=== PATIENT | female | born 1940 | race Caucasian/White ===

== ENCOUNTER → 2018-08-20 13:14 | Outpatient (CLI) | payer MEDICARE, SELFPAY ==
--- NOTE | 2018-08-20 | DI.MRI.S_ITS ---
PROCEDURE: MR LUMBAR SPINE WO CON INDICATIONS: LUMBAR SPINE PAIN TECHNIQUE: Noncontrast sagittal T1 spin echo and T2 fast echo, sagittal STIR, axial T1 and T2 fast spin echo through the lumbar spine. In cases with scoliosis, additional coronal T2 fast spin echo may be performed. COMPARISON: None. FINDINGS: Image quality: Excellent. Alignment and Curvature: No plain films are available for comparison, for numbering purposes. Thus, for the purposes of this examination, 5 lumbar type vertebral bodies will be presumed, as denoted on the montage panel. This should be confirmed and correlated with plain films, prior to any lumbar spinal intervention. There is loss of normal lumbar lordosis. There is mild, grade 1 retrolisthesis of L2 on L3, L3 on L4, L4 and L5, and L5 on S1. Bone Marrow: Marrow is of normal overall signal. No acute vertebral body compression fractures. There is moderate reactive signal within the endplates adjacent to the L1-L2, L2-L3, and L3-L4 intervertebral discs. Mild reactive signal within the endplates adjacent to the L4-L5 and L5-S1 intervertebral discs. Spinal Cord: Conus medullaris terminates at the mid L1 level. Visualized cord demonstrates normal signal and size. Paraspinous Soft Tissues: No paravertebral masses. L1-L2: Severe disc height loss and desiccation. Mild diffuse disc bulge with superimposed broad-based left posterolateral and far lateral protrusion. Moderate epidural lipomatosis. Mild facet and ligamentum flavum hypertrophy. There is moderate to severe canal stenosis. There is mild left and no right foraminal stenosis. L2-L3: Moderate disc height loss and desiccation. Moderate diffuse disc bulge. Mild facet and ligamentum flavum hypertrophy bilaterally. Moderate epidural lipomatosis. Severe canal stenosis. Mild left and moderate right foraminal stenosis. L3-L4: Severe disc height loss and desiccation. Moderate diffuse disc bulge/osteophyte with superimposed right far lateral protrusion/osteophyte. Bilateral facet and ligamentum flavum hypertrophy. Moderate epidural lipomatosis. Moderate canal stenosis. Moderate right and mild left foraminal stenosis. L4-L5: Moderate disc height loss and desiccation. Moderate diffuse disc bulge with superimposed broad-based right far lateral protrusion. Moderate bilateral facet and ligamentum flavum hypertrophy. Mild epidural lipomatosis. Mild canal stenosis. Moderate bilateral foraminal stenosis. L5-S1: Moderate disc height loss and desiccation. Mild diffuse disc bulge with superimposed broad-based left lateral protrusion/osteophyte. Mild bilateral facet hypertrophy. Mild canal stenosis. Mild right and severe left foraminal stenosis. Flattening deformity of the left L5 nerve root within the neural foramen. IMPRESSION: 1.5 lumbar type vertebral bodies were presumed for the current report. Plain films of the lumbar spine are recommended for confirmation, prior to any lumbar spinal intervention. 2. Multilevel degenerative disc and facet disease, as well ligamentum flavum hypertrophy and epidural lipomatosis. 3. Multilevel canal stenoses, worst at L2-L3, where there is severe canal stenosis. There is moderate to severe L1-L2 canal stenosis, and moderate L3-L4 canal stenosis. 4. Multilevel foraminal stenoses, worse at L5-S1 on the left, where there is flattening deformity of the left L5 nerve root within the neural foramen. Recommend correlation with clinical symptoms to ascertain relevance of this finding. Dictated by: Mariam Rai M.D. on 08/20/2018 at 16:02 Approved by: Mariam Rai M.D. on 08/20/2018 at 16:07
== END ==
PROVIDERS: Visit Provider Orthopaedic Surgery Orthopaedic Surgery of the Spine
DX: M54.5 Low back pain (principal); M51.36 Other intervertebral disc degeneration, lumbar region; M51.37 Other intervertebral disc degeneration, lumbosacral region; E88.2 Lipomatosis, not elsewhere classified; M48.061 Spinal stenosis, lumbar region without neurogenic claudication; M48.07 Spinal stenosis, lumbosacral region
CPT/HCPCS: 72148

== ENCOUNTER 2018-12-06 06:04 | Inpatient (IN) | payer MEDICARE, SELFPAY ==
[2018-11-18 12:52] VITALS: BMI 25.7
[2018-12-06] VITALS (26 sets, daily range): BP systolic 79–153; BP diastolic 32–78; PULSE 50–67; RESP 10–20; TEMP 35.7–37; O2SAT 91–99; BMI 26.8
[2018-12-06] MEDS: LACTATED RINGERS 1,000 ML 42 ML IV ×3 (07:06→12:26)
--- NOTE | 2018-12-06 07:40 | PM.PREOP ---
Pre-operative Note Interval Note History & Physical reviewed/Exam performed by Physician: Yes Changes to H&P: No
[2018-12-06] MEDS: CEFAZOLIN 2 GM/100 ML FROZ.PIGGY IV ×3 (07:50→23:40)
--- NOTE | 2018-12-06 08:41 | SUR.OPER ---
Prone on spine table, head in foam head support, padded chest and pelvic supports, gel pad at knees, lower legs supported by pillows; nipples, genitalia and toes free of pressure, arms secured on foam padded arm boards at <90 degrees abduction. Tape over blanket at thigh secured to table.
[2018-12-06] MEDS: BUPIVACAINE 0.25% W/ EPI VIAL 30 ML INJ (08:49)
[2018-12-06] MEDS: BUPIVACAINE LIPOSOME 266 MG/20 ML VIAL INJ (08:50)
[2018-12-06] MEDS: ACETAMINOPHEN IV 1,000 MG/100 ML VIAL 400 MG IV (11:45)
--- NOTE | 2018-12-06 12:12 | P.OP_ITS ---
Operative Date/Time/Diagnoses Date of procedure: 12/06/18 Time of procedure: 08:10 Pre-op diagnosis: 1. Lumbar scoliosis 2. L2-3, L3-4 spinal stenosis 3. L2-3, L3-4 spondylolisthesis 4. L2-3, L3-4 spondylosis with radiculopathy Post-op diagnosis: same Procedure & Clinicians Procedure: 1. L2-3, L3-4 Postero-lateral and posterior interbody fusion 2. L2-3, L3-4 interbody cage placement. 3. L2-3, L3-4 decompressive laminectomy with bilateral facetecomies 4. L2-3, L3-4 Posterior segmental instrumentation 5. [place] of bone marrow from iliac crest 6. Utilization of microsurgical technique and operating microscope Same procedure as scheduled: Yes Indications: Patient has been having chronic back pain and worsening lumbar radiculopathy. Patient failed multiple conservative management with worsening pain weakness and numbness in her lower extremity. Patient has been having difficulty performing activity of daily living. After discussing risks benefits of treatment options, patient elected proceed with surgery. Surgeon: Janice Nassar Automotive Electrician Helper: Brooke Barney Click Yes if Unassisted: No Anesthesia Type: General Operative Notes Closure Type: primary Specimen(s): none sent Prosthetic devices, grafts, tissues, transplants, or devices: Globus revolve screws, Rise cages Estimated Blood Loss (mL): 100 Blood products transfused: none Procedure in detail: Patient was seen in the preoperative area. Risks and benefits of the surgery was discussed with the patient. Informed consent was obtained from the patient and placed in the chart. Surgical site was marked. Patient was taken to the operative room. General anesthesia was administered. Prophylactic antibiotic was given to the patient less than 30 min before the incision was made. Patient was placed into a prone position on the Theo table. Patient's back was then prepped and draped in the sterile fashion. Time- out was performed at this time. Using AP and lateral C-arm imaging the interval between L2-3, L3-4 was identified and marked on patient's back. A 2 inch incision 2 in from midline was made on the right side first. The fascia was incised in line with skin incision. Globus MARS retractors was placed inside the incision and docked onto the L2 and L3 lamina. Using microsurgical technique and operating microscope, a L2 and L3 laminectomy and L2-3, L3-4 facetectomy was performed using a Kerrison rongeur. During the process of decompression more than 75% of bilateral L2-3, L3-4 facets were removed in order to decompress the spinal canal and the lateral recess. The L2-3, L3-4 level was grossly unstable after the decompression was completed and requiring the fusion procedure. The disc space at L2-3, L3-4 was identified. And a total diskectomy was performed at L2-3, L3-4 level. The endplates were decorticated using a rasp and shaver. The total diskectomy and decortication was performed at L2-3, L3-4 level in order to to accomplish a L2- 3, L3-4 fusion. The local bone from the laminectomy and facetectomy was saved for local bone grafting. After the total diskectomy and decortication was completed, Bio4 bone graft material was combined with local bone that was harvested earlier. At this time, a separate skin is incision was made over the iliac crest. A Jamshidi needle was inserted into the iliac crest through a separate skin incision. 5 cc of bone marrow aspiration was obtained through the separate skin incision using a Jamshidi needle from the iliac crest. The bone marrow aspiration was combined with local bone and the Bio4 bone grafting material. The bone grafting material was placed into the L2-3, L3-4 interbody space along with two cages, one expandable cage at each level. The cages were expanded to their maximum height using the torque limiting screwdriver. At this time a mirror image incision was made on the left side. The fascia was incised in line with the skin incision. Globus MARS retractor was inserted and docked onto the L2-3, L3-4 posterolateral gutter. Using the power drill, posterior-lateral decortication was performed at L2-3, L3-4 level until bleeding cortical bone was identified. The remaining bone grafting material was placed into the L2-3, L3-4 posterior lateral gutter he order to accomplish posterolateral fusion at the L2-3, L3-4 levels. Using the double C-arm technique, pedicle screws were placed into the L2, L3, L4 pedicles bilaterally. This was done by placing the Jamshidi needle into the pedicles, then placing the guidewires over the Jamshidi needle, and finally placing the cannulated screws over the guidewires bilaterally. After the pedicle screws were placed, 2 titanium rods was locked into the heads of the pedicle screws using locking caps and torque limiting screwdriver. Total 6 pedicles screws were placed. After all the hardware was placed, and confirmed with AP and lateral C-arm imaging, the wound was then irrigated with sterile normal saline and packed with [place] gauze for 3 min to accomplish hemostasis. After the gauze was removed the deep fascia was closed with #1 Vicryl suture. The subcutaneous layer was closed with 2-0 Vicryl. The skin was closed with skin shayna. Patient tolerated the procedure well. There were no complications. Complications: none Condition: stable Disposition: PACU Plan for aftercare: Admit to inpatient hospital
--- NOTE | 2018-12-06 12:17 | DI.RAD.S_ITS ---
PROCEDURE: XR LUMBAR SPINE 2-3V INDICATIONS: L2-3, L3-4 TLIF TECHNIQUE: 2 views of the lumbar spine were acquired. COMPARISON: [facility], CR, XR LUMBAR SPINE FLEXION EXTENSION, 08/12/2018, 16:06. FINDINGS: Bones: 5 [id number] vertebrae are present. There is normal bony alignment after posterior fusion with transverse pedicle screws and vertical fixation rods from L2-L4 with also interbody cage disc prostheses devices at the 2 intervening disc levels. No vertebral body compression fractures. No suspicious bony lesions. Soft tissues: Overlying bowel gas pattern is normal. No suspicious soft tissue calcifications. IMPRESSION: Normal alignment established after operative fusion as discussed, L2-L4. Normal device positioning. Dictated by: Bertin Dias M.D. on 12/06/2018 at 12:46 Approved by: Bertin Dias M.D. on 12/06/2018 at 12:47
--- NOTE | 2018-12-06 12:52 | SUR.PHASEI ---
Dr Herrera at [facility]. Fluids slowed a bit with BP > 100 systolic. Oral airway remains in place with some raspy sounds occasionally heard when eyes open. Eyes open spontaneously now, but only briefly.
--- NOTE | 2018-12-06 12:55 | SUR.PHASEI ---
Pupils 3mm B/l
--- NOTE | 2018-12-06 13:24 | SUR.PHASEI ---
Finally awake altho mentation and movements remain a bit slowed.
--- NOTE | 2018-12-06 13:50 | SUR.PHASEI ---
Prolonged PACU stay due to somnolence, O2 sats and BP needs. Awake now, stable and sufficient BP readings, O2 with only 2L NC. Denies pain. Glasses with patient for transfer.
[2018-12-06] MEDS: hydrOXYzine pamoate 25 MG CAPSULE PO (15:11)
[2018-12-06] MEDS: ACETAMINOPHEN 325 MG TABLET 650 MG PO ×2 (15:12→23:03)
[2018-12-06] MEDS: HYDROMORPHONE 1 MG INJ 0.5 MG IV (15:12)
[2018-12-06] MEDS: SODIUM CHLORIDE 0.9% 1,000 ML 100 ML IV (15:13)
--- NOTE | 2018-12-06 18:04 | PT.IIE ---
Current Diagnoses Spondylolisthesis, lumbar region (12/06/18) Other spondylosis with radiculopathy, lumbar region (12/06/18) Spinal stenosis, lumbar region without neurogenic claudication (12/06/18) Surgery Performed Operation Date: 12/06/18 07:45 Actual Procedures p L2-3, L3-4 TLIF w/Posterior Sven - Janice Nassar MD Surgical History (Last Updated 11/18/18 @ 13:15 by Joanna Chambers RN) Hx of arthroscopy of left knee (Acute ~2002) Hx of tonsillectomy (Acute) Status post cataract extraction of both eyes with insertion of intraocular lens (Acute) Medical History (Last Updated 11/18/18 @ 13:18 by Joanna Chambers RN) Back pain (Acute) DDD (degenerative disc disease) (Acute) Easy bruisability (Acute) Ganglion cyst of dorsum of left wrist (Acute) Gout (Acute) Hyperlipidemia (Acute) Lumbar stenosis (Acute) Migraines (Acute) Neck pain (Acute) Numbness and tingling (Acute) Osteoarthritis (Acute) Osteoporosis (Acute) Recurrent HSV (herpes simplex virus) (Acute) Sciatica (Acute) Scoliosis (Acute) Skin cancer (Acute) Torn meniscus (Acute) Physical Therapy Inpatient Evaluation/Re-Eval M1 PT/OT-IP Prior Functional Status Start: 12/06/18 17:17 Freq: NEEDED Status: Active Protocol: Document 12/06/18 15:45 HH (Rec: 12/06/18 18:03 [id number]) Medical Review Prior Functional Status Medical History Reviewed Yes Diet/Fluid Consistency Regular Communication No deficits noted Mobility and Gait Pt was an independent ambulator at home and community without using AD. Pt also drives very often. Pt was able to do gardening from time to time until her new onset of LBP and R lep pain since few months ago. Activities of Daily Living and IADL's Pt was very independent with ADLs and IADLs without using AD Social History Household Members spouse Living Arrangements House Number of Floors (Floors) One Floor Number of Stairs To Enter/Railing? No CHAKA Home Environment Walk in Shower Tub/Shower Home Equipment Front Wheel Walker Straight Cane Raised Toilet Seat w/Armrests Grab Bars Near Toilet Grab Bars In Shower Employment Status Retired Additional Social History Comment Pt lives with her in a 1 level home without CHAKA. 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 She was very active before and likes to do gardening from time to time. Pt c/o new onset of LBP and R leg pain since couple months ago which significantly limited her mobility. Pt's had knee surgery last year and has little difficulty doing sit to stand activities but he does not use AD and independent for ADLs and IADLs M2 PT-IP Current Condition Start: 12/06/18 17:17 Freq: NEEDED Status: Active Protocol: Document 12/06/18 15:45 HH (Rec: 12/06/18 18:03 [id number]) Physical Therapy Current Condition Current Condition Evaluation Date 12/06/18 Treatment Diagnosis L2-L4 TLIF, impaired balance and gait Onset Date 12/06/18 Precautions Lumbar Precautions Log Roll No Twisting Limit Bending Lifting Restriction of 10 lbs Gait Belt above Incisional Area Weight Bearing Status Weight Bearing Status Weight Bear as Tolerated M3 PT-IP Subjective Start: 12/06/18 17:17 Freq: NEEDED Status: Active Protocol: Document 12/06/18 15:45 HH (Rec: 12/06/18 18:03 [id number]) Subjective Physical Therapy Visit Type Type Initial Evaluation Visit Start Time 15:45 Visit Stop Time 16:15 Total Visit Minutes 30 Notes Per RN, pt has been quite impulsive and wanted to get OOB due to discomfort. Nursing staff assisted her getting into bedside chair. Pt's at bedside. Number of AGRONOMY PROFESSOR Visits 0 Physical Therapy Visit Comments Patient Comments My L lower back is having spasm since sx. Im loopy and lightheaded as well. Patient Goals To return home with her . Therapy Pain Assessment Pain Present Pain Present Denied Pain M4 PT-IP Mobility and Gait Start: 12/06/18 17:17 Freq: NEEDED Status: Active Protocol: Document 12/06/18 15:45 HH (Rec: 12/06/18 18:03 [id number]) PT-Transfer Assessment Sit to and From Stand Sit to and from Stand Contact Guard Assistance 1 Person Assistance Use of Upper Extremities Equipment Transfer Assistive Device Gait Belt Front Wheeled Walker Transfers Transfer Destination Bed Chair Toilet Transfer Technique Stand Step Pivot Transfer Ability Level of Assist Contact Guard Assistance 1 Person Assistance Use of Upper Extremities Comments Mobility Comments Pt sat in chair upon assessment. c/o loopy and lightheadness. BP 130s/60 s HR 60s SpO2 98% pre and post tx session. Pt was able to stand up and amb to bathroom for toileting. She transferred with CGA FWW. However, pt demonstrates slight retropulsion and siginificant sway back posture from time to time which required CGA for support. Gait Assessment Gait Gait Assistance Required: Contact Guard Assist 1 Person Assist Distance (Feet) 15 Able to Maintain Weight Bearing Status Yes During Gait Assistive Devices Assistive Device Gait Belt Front Wheeled Walker Gait Deviations General Gait Pattern Ataxic Decreased Stride Length Decreased Feet Clearance Factors Limiting Gait Function Factors Limiting Gait Function Decreased Activity Tolerance Decreased Sensation Decreased Strength Limited Range of Motion Pain Poor Balance Poor Safety Awareness Comments Gait Comments Pt amb from chair to bathroom for toileting and returned back to chair with FWW CGA. Pt presented slight ataxic gait with significant sway back/ slight retropulsion. This is possibly due to effect from anasthesia. Pt c/o lightheadedness but BP maintained safe and WFL. PT-Balance Assessment Sitting Balance and Reactions Static Sitting Balance Ability Normal Dynamic Sitting Balance Ability Normal Standing Balance and Reactions Static Standing Balance Ability Good Dynamic Standing Balance Ability Fair M5 PT-IP Objective Assessments Start: 12/06/18 17:17 Freq: NEEDED Status: Active Protocol: Document 12/06/18 15:45 (Rec: 12/06/18 18:03 [id number]) Orientation Orientation/Cognition Level of Alertness Alert Orientation Name Age Birthday Month Date Year Day of Week Place Situation Language Function Ability No Deficits Noted Safety Awareness Decreased Safety Awareness Memory Description No Deficits Noted Gross Range of Motion Upper Extremity ROM Assessment Within Functional Limits Lower Extremity ROM Assessment Within Functional Limits Strength Upper Extremity Strength Assessment Within Functional Limits Lower Extremity Strength Assessment Within Functional Limits Coordination Assessment Gross Coordination Gross Coordination WNL Sensation Assessment Sensation Gross Sensation WNL Light Touch Intact Proprioception (Position) Intact Muscle Tone Muscle Tone WNL Yes M6 PT-IP Treatment Start: 12/06/18 17:17 Freq: NEEDED Status: Active Protocol: Document 12/06/18 15:45 HH (Rec: 12/06/18 18:03 [id number]) Physical Therapy Treatment Exercises Exercises Ankle Pumps Quad Sets Education Education Provided Precautions Weight Bearing Status Post-Op Packet Safety M7 PT-IP Assessment and Plan Start: 12/06/18 17:17 Freq: NEEDED Status: Active Protocol: Document 12/06/18 15:45 HH (Rec: 12/06/18 18:03 [id number]) PT Summary Assessment and Plan Potential Rehabilitation Potential Good Status of Condition at Evaluation Evolving Summary Impairments Pain ROM Strength Balance Bed Mobility Transfers Gait Activity Tolerance Assessment Summary Pt is a pleasant 78yo female POD #1 L2-L4 TLIF. Pt's at bedside upon assessment. Pt c/o Left back spasm and lightheadedness, along with loopy feeling. Pt 's VS maintained stable during entire session but pt appeared to be slightly impulsive possibly due to medication from sx. Pt presented slight ataxic gait, significant sway back posture and slight retropulsion during amb which required CGA for safety. Pt also attempted to amb without FWW x 2. Pt will require SNF care due to her new onset of impaired balance and gait at this point, but she most likely will progress back to baseline and d/c home with assist once she is medically stable. Cont closely monitor with pt's progress and decide further d/ c planning. Goals Bed Mobility Goal Standby Assistance Transfer Goal Standby Assistance Front Wheeled Walker Gait Goal Standby Assistance Front Wheel Walker Gait Distance 200 Days to Meet Goals 5 Frequency of Treatment Frequency Of Treatment Twice a Day Treatment Plan Physical Therapy Treatment Plan Bed Mobility Training Transfer Training Gait Training Therapeutic Exercise Balance Retraining Post Op Education Discharge Planning Hot or Cold Pack Other Recommendations and Next Treatment monitor pt's mental status and Focus VSS transfer and gait training as rajinder. Recommendations To Nursing Amount of Assist Needed 1 Person Assist Discharge Recommendations PT Discharge Recommendations Home with Assistance SNF Rehab Other Discharge Recommendations Pt will require SNF care due to her new onset of impaired balance and gait at this point , but she most likely will progress back to baseline and d/c home with assist once she is medically stable. Cont closely monitor with pt's progress and decide further d /c planning. Equipment Needed for Home Before shower bench Discharge
[2018-12-06] MEDS: PRAVASTATIN 20 MG TABLET 10 MG PO (20:41)
[2018-12-06] MEDS: SENNOSIDES 8.6 MG TABLET 17.2 MG PO (20:43)
[2018-12-06] MEDS: MELATONIN 3 MG TABLET 6 MG PO (20:43)
--- NOTE | 2018-12-07 00:28 | PC.NURSE ---
Addendum entered by Meryl Green R.N. 12/07/18 06:24: Patient requesting Aleve this morning and when told that was not an ordered med she was unhappy because Dr Nassar knows that is what I have been taking for years. Informed her that after back surgery non steroidals are suppose to be avoided at which time patient took pill out of her mouth (had taken it from purse without RN knowledge) and then agreed to take 1 tab of Tylenol adamantly refusing Oxycodone. Right leg is obviously weak with patient barely being able to lift it off the bed. Is able to ambulate to/from bathroom without any dragging of foot or obvious weakness. Original Note: Addendum entered by Meryl Green R.N. 12/07/18 05:37: 0215 Patient upset with being woke by noises and staff checking on her. IVF infused and machine alarming and patient claims it was alarming for past hour which was not correct. Sat up on edge of bed and trying to stand by herself when stopped by staff informing her she needs to wait for walker and staff assistance. States I'm going to call a cab and go home. Disconnected from IVF as per MD order and then assisted to walk to the bathroom and back to bed. Has been sleeping rest of night when hourly patient checks done. Original Note: Patient is alert and oriented. Breath sounds CTA with RA sat of 99%. HRR. Denies nausea but having some heartburn but does not want MD called for any meds so decided to try yogurt instead. BT present and is passing flatus. Turns self in bed and is up to bathroom with walker and 1 assist. Dressing to back with some shadow drainage but is intact. Complains of 4/10 right leg pain for which she was earlier medicated with Tylenol; declines offer of ice pack. States she has some tingling in right inner thigh but otherwise CMS is intact. Refusing to wear SCD's so reminded to ankle wave. Fall risk score is high and bed alarm is activated.
[2018-12-07 06:11] LABS: Hematocrit 27.9 % (36-46); Hemoglobin 9.4 g/dL (12.0-16.0)
[2018-12-07 06:15] VITALS: BP 120/62; PULSE 56; RESP 16; TEMP 36.6; O2SAT 97
[2018-12-07] MEDS: ACETAMINOPHEN 325 MG TABLET 650 MG PO ×2 (06:19→09:26)
[2018-12-07 08:00] VITALS: BP 115/58; PULSE 62; RESP 15; TEMP 36.7; O2SAT 98
[2018-12-07] MEDS: DOCUSATE 100 MG CAPSULE PO (08:00)
[2018-12-07] MEDS: SODIUM CHLORIDE 0.9% FLUSH 10 ML IV (08:05)
--- NOTE | 2018-12-07 08:26 | PM.DS.1 ---
History of Present Illness Date Patient Seen: 12/07/18 Time Patient Seen: 08:26 Chief complaint: [id number] Narrative: Hospital day 2, postop day 1 following L2-3, L3-4 laminectomy, TLIF, cage and posterior screw fixation by Dr. Nassar. Patient remained stable postoperatively. She does note some weakness to her right thigh with lifting leg. She is able to get up out of bed on her own with walker and ambulate. Patient does have help home. She is desiring to go home today. She does have help at home. She does not want to use narcotics. She has had some reflux and does use occasional Prilosec at home. Dr. Nassar does not want to use NSAIDs postop instrumented fusion. Discharge Providers Date of admission: 12/06/18 06:04 Discharge Date: 12/07/18 Primary care physician: Radha Mccormack MD Consults: 12/06/18 14:24 Consult to Occupational Therapy Evaluate & Treat Comment: Physician Instructions: Evaluate and treat Consult to Physical Therapy Evaluate & Treat Comment: Physician Instructions: Evaluate and Treat Discharge provider: Luis Dia PA-C Summary Discharge Diagnosis: Status post L2-3, L3-4 laminectomy, TLIF, cage, posterior screw fixation Hospital Course: Patient brought to hospital on 12/06/2018 for above noted surgery. She remained stable postoperatively. She did have a L3 palsy following surgery otherwise able to move her leg and ambulate. Discharged home on postop day 1. Status at Discharge Cognitive/behavioral status at discharge: Alert, oriented no acute distress. Functional status at discharge: uses cane/walker Overall status at discharge: patient is progressing back to baseline Time Spent with Patient Less than 30 minutes Exam Vital Signs (past 8 hours): - 12/07/18 06:15 12/07/18 08:00 Temperature 97.9 F 98.0 F Pulse Rate 56 L 62 Respiratory Rate 16 15 Blood Pressure 120/62 115/58 L Pulse Oximetry 97 98 Oxygen Delivery Method Room Air Oxygen Flow Rate 0 Narrative Exam Narrative: Back. Dressing to lumbar area is dry without drainage or inflammation. Legs. No calf pain or swelling. Pulses symmetrical. Good sensation to touch to the lower legs symmetrical. Good strength on ankle dorsiflexion plantar flexion symmetrical. Patient has difficulty with right leg raise. Objective Labs Result Diagrams: 12/07/18 06:01 Labs: Laboratory Results - last 24 hr 12/07/18 06:01 Hgb 9.4 L Hct 27.9 L Discharge Plan Discharge Plan Patient Disposition: Home Discharge comment: Discharged home today after seen by physical therapy. CovRsite dressing to lumbar incision. I recommended the patient try to obtain a bed rail to use at home. Discharge Med Rec/Prescriptions Prescriptions: New acetaminophen 325 mg Tablet 650 mg PO Q6HR PRN (Reason: Pain, Mild (1-3)) Qty: 30 RF: 0 tramadol 50 mg Tablet 50 mg PO QID PRN (Reason: Pain, Moderate (4-6)) Qty: 30 RF: 0 dexamethasone 4 mg Tablet 4 mg PO Q8HR Qty: 14 RF: 0 Continued propranolol [Inderal LA] 60 mg Capsule,Extended Release 24 Hr 30 mg PO BEDTIME RF: 0 aspirin 81 mg Tablet,Delayed Release (Dr/Ec) 81 mg PO DAILY RF: 0 pravastatin 10 mg Tablet 10 mg PO DAILY RF: 0 famciclovir 500 mg Tablet 500 mg PO DAILY RF: 0 diphenhydramine HCl [Benadryl] 25 mg Capsule 12.5 mg PO BEDTIME RF: 0 melatonin 5 mg Tablet 5 mg PO BEDTIME RF: 0 Discontinued ibuprofen 200 mg Tablet 1 - 2 tab PO BID PRN (Reason: pain) RF: 0 Follow up/Referrals: Radha Mccormack MD [Primary Care Provider] - Provider Discharge Instructions Diet: Diet as Tolerated Activity: Ambulate as tolerated. Use walker as needed. Avoid excessive bending or twisting of lumbar spine. No lifting or carrying more than 5-10 lb. Other treatments: Take dexamethasone until gone. Skin/Wound/Dressing Care Report to your healthcare provider any signs of infection, such as:: chills, fever, night sweats, increased pain, unusual drainage and unusual redness Dressing: Keep CovRsite dressing in place until postop visit. Visit Report/Discharge Packet Instructions: DI for Transforaminal Lumbar Interbody Fusion Discharge Data Primary Care Provider: Radha Mccormack Attending Provider: Janice Nassar Admit Date/Time: 12/06/18 06:04
--- NOTE | 2018-12-07 08:31 | P.DS_ITS ---
History of Present Illness Date Patient Seen: 12/07/18 Time Patient Seen: 08:26 Chief complaint: [id number] Narrative: Hospital day 2, postop day 1 following L2-3, L3-4 laminectomy, TLIF, cage and posterior screw fixation by Dr. Nassar. Patient remained stable po stoperatively. She does note some weakness to her right thigh with lifting leg. She is able to get up out of bed on her own with walker and ambulate. Patient does have help home. She is desiring to go home today. She does have help at home. She does not want to use narcotics. She has had some reflux and does use occasional Prilosec at home. Dr. Nassar does not want to use NSAIDs postop instrumented fusion. Discharge Providers Date of admission: 12/06/18 06:04 Discharge Date: 12/07/18 Primary care physician: Radha Mccormack MD Consults: 12/06/18 14:24 Consult to Occupational Therapy Evaluate & Treat Comment: Physician Instructions: Evaluate and treat Consult to Physical Therapy Evaluate & Treat Comment: Physician Instructions: Evaluate and Treat Discharge provider: uLis Dia PA-C Summary Discharge Diagnosis: Status post L2-3, L3-4 laminectomy, TLIF, cage, posterior screw fixation Hospital Course: Patient brought to hospital on 12/06/2018 for above noted surgery. She remained stable postoperatively. She did have a L3 palsy following surgery otherwise able to move her leg and ambulate. Discharged home on postop day 1. Status at Discharge Cognitive/behavioral status at discharge: Alert, oriented no acute distress. Functional status at discharge: uses cane/walker Overall status at discharge: patient is progressing back to baseline Time Spent with Patient Less than 30 minutes Exam Vital Signs (past 8 hours): - 12/07/18 06:15 12/07/18 08:00 Temperature 97.9 F 98.0 F Pulse Rate 56 L 62 Respiratory Rate 16 15 Blood Pressure 120/62 115/58 L Pulse Oximetry 97 98 Oxygen Delivery Method Room Air Oxygen Flow Rate 0 Narrative Exam Narrative: Back. Dressing to lumbar area is dry without drainage or inflammation. Legs. No calf pain or swelling. Pulses symmetrical. Good sensation to touch to the lower legs symmetrical. Good strength on ankle dorsiflexion plantar flexion symmetrical. Patient has difficulty with right leg raise. Objective Labs Result Diagrams: 12/07/18 06:01 Labs: Laboratory Results - last 24 hr 12/07/18 06:01 Hgb 9.4 L Hct 27.9 L Discharge Plan Discharge Plan Patient Disposition: Home Discharge comment: Discharged home today after seen by physical therapy. CovRsite dressing to lumbar incision. I recommended the patient try to obtain a bed rail to use at home. Discharge Med Rec/Prescriptions Prescriptions: New acetaminophen 325 mg Tablet 650 mg PO Q6HR PRN (Reason: Pain, Mild (1-3)) Qty: 30 RF: 0 tramadol 50 mg Tablet 50 mg PO QID PRN (Reason: Pain, Moderate (4-6)) Qty: 30 RF: 0 dexamethasone 4 mg Tablet 4 mg PO Q8HR Qty: 14 RF: 0 Continued propranolol [Inderal LA] 60 mg Capsule,Extended Release 24 Hr 30 mg PO BEDTIME RF: 0 aspirin 81 mg Tablet,Delayed Release (Dr/Ec) 81 mg PO DAILY RF: 0 pravastatin 10 mg Tablet 10 mg PO DAILY RF: 0 famciclovir 500 mg Tablet 500 mg PO DAILY RF: 0 diphenhydramine HCl [Benadryl] 25 mg Capsule 12.5 mg PO BEDTIME RF: 0 melatonin 5 mg Tablet 5 mg PO BEDTIME RF: 0 Discontinued ibuprofen 200 mg Tablet 1 - 2 tab PO BID PRN (Reason: pain) RF: 0 Follow up/Referrals: Radha Mccormack MD [Primary Care Provider] - Provider Discharge Instructions Diet: Diet as Tolerated Activity: Ambulate as tolerated. Use walker as needed. Avoid excessive bending or twisting of lumbar spine. No lifting or carrying more than 5-10 lb. Other treatments: Take dexamethasone until gone. Skin/Wound/Dressing Care Report to your healthcare provider any signs of infection, such as:: chills, fever, night sweats, increased pain, unusual drainage and unusual redness Dressing: Keep CovRsite dressing in place until postop visit. Visit Report/Discharge Packet Instructions: DI for Transforaminal Lumbar Interbody Fusion Discharge Data Primary Care Provider: Radha Mccormack Attending Provider: Janice Nassar Admit Date/Time: 12/06/18 06:04
[2018-12-07] MEDS: PANTOPRAZOLE 20 MG TABLET PO (09:18)
[2018-12-07] MEDS: DEXAMETHASONE 4 MG TABLET PO (09:18)
--- NOTE | 2018-12-07 11:00 | OT.IP.EVAL ---
Current Diagnoses Spondylolisthesis, lumbar region (12/06/18) Other spondylosis with radiculopathy, lumbar region (12/06/18) Spinal stenosis, lumbar region without neurogenic claudication (12/06/18) Surgery Performed Operation Date: 12/06/18 07:45 Actual Procedures p L2-3, L3-4 TLIF w/Posterior Sven Nassar MD Past Medical History (Last Updated 11/18/18 @ 13:18 by Joanna Chambers RN) Back pain (Acute) DDD (degenerative disc disease) (Acute) Easy bruisability (Acute) Ganglion cyst of dorsum of left wrist (Acute) Gout (Acute) Hyperlipidemia (Acute) Lumbar stenosis (Acute) Migraines (Acute) Neck pain (Acute) Numbness and tingling (Acute) Osteoarthritis (Acute) Osteoporosis (Acute) Recurrent HSV (herpes simplex virus) (Acute) Sciatica (Acute) Scoliosis (Acute) Skin cancer (Acute) Torn meniscus (Acute) Surgical History (Last Updated 11/18/18 @ 13:15 by Joanna Chambers RN) Hx of arthroscopy of left knee (Acute ~2002) Hx of tonsillectomy (Acute) Status post cataract extraction of both eyes with insertion of intraocular lens (Acute) Occupational Therapy Inpatient Evaluation/Re-Eval M1 PT/OT-IP Prior Functional Status Start: 12/07/18 12:29 Freq: NEEDED Status: Active Protocol: Document 12/07/18 11:00 PJDerrick (Rec: 12/07/18 12:47 PJ [id number]) Medical Review Prior Functional Status Medical History Reviewed Yes Diet/Fluid Consistency Regular Communication WNL Mobility and Gait Pt was an independent ambulator at home and community without using AD. Pt was able to do gardening from time to time until her new onset of LBP and R leg pain since few months ago. Activities of Daily Living and IADL's Pt was very independent with ADLs and IADLs without using AD. 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 Prior Functional Level (Other details) has had knee surgery but ambulates without a device and can provide assist with all IADLS PRN after d/c. Social History Household Members spouse Living Arrangements House Number of Floors (Floors) One Floor Number of Stairs To Enter/Railing? No stairs to enter Home Environment Walk in Shower Home Equipment Front Wheel Walker Raised Toilet Seat w/Armrests Shower Seat with Backrest Long Handled Sponge Shredder Picker Grab Bars Near Toilet Grab Bars In Shower Employment Status Retired M2 OT-IP Current Condition Start: 12/07/18 12:29 Freq: Status: Active Protocol: Document 12/07/18 11:00 PJM (Rec: 12/07/18 12:47 PJ [id number]) Occupational Therapy Current Condition Current Condition Evaluation Date 12/07/18 Treatment Diagnosis decreased self care, mobility s/p L2-4 fusion Diagnosis Onset Date 12/06/18 Post Operative Precautions Lumbar Precautions Log Roll No Twisting Limit Bending Lifting Restriction of 10 lbs Gait Belt above Incisional Area M3 OT- IP Subjective and Pain Start: 12/07/18 12:29 Freq: Status: Active Protocol: Document 12/07/18 11:00 PJM (Rec: 12/07/18 12:47 PJM [id number]) OT- Subjective Occupational Therapy Visit Type Type Initial Evaluation Visit Start Time 10:05 Visit Stop Time 11:00 Total Visit Minutes 55 Notes here at end of session for education Occupational Therapy Visit Comments Patient Comments I think I am ready to go home . Will this numbness and weakness in my leg get better? Patient/Caregiver Goals to be able to resume volunteer driving duties and work in her garden, to have less back pain during daily tasks OT Pain Assessment Pain When Pain Assessed After Treatment Pain Present Pain Present Pain Reported Location Right Leg Intensity 4 Scale Used Numeric (1 - 10) Description Aching Acute Pain Behaviors Guarding Management Techniques Distraction Re-positioning Timing of Activity with Medications M4 OT- IP ADL's Start: 12/07/18 12:29 Freq: Status: Active Protocol: Document 12/07/18 11:00 PJM (Rec: 12/07/18 12:47 PJM [id number]) OT [id number]-[id number] General Evaluation Self-Feeding Ability Independent OT ADL-Grooming General Evaluation Grooming Ability Independent Areas Needing Assistance Combing/Brushing Hair Face Washing Comments OT Grooming Comments standing at sink after education re: body mechanics OT ADL-Oral Care General Eval Oral Care Ability Independent Areas of Assistance Brushing Teeth Devices Oral Care Devices Toothbrush Comments Oral Care Comments standing at sink after education re: body mechanics OT ADL-Dressing General Eval Upper Body Dressing Ability Independent Lower Body Dressing Ability Standby Assistance Areas Needing Assistance Underpants/Brief Pants/Shorts Socks Shoes Assistive Devices Dressing Assistive Devices Shredder Picker Sock Aid Comments OT Dressing Comments Pt has senior service technician. Provided education re: doffing socks and donning/doffing pants with senior service technician. Provided education re: use of sock aid to don socks and provided one to pt at her request. Pt declines long shoe horn; states she wears only slip on shoes at home. OT ADL-Toileting General Evaluation Toileting Ability Independent Areas Needing Assistance Manage Clothing Perform Perineal Hygiene Comments OT Toileting Comments provided education re: body mechanics OT ADL-Bathing Bathing Type Bathing Type Shower General Evaluation Bathing Ability Standby Assistance Devices Bathing Equipment Long Handled Sponge or [place] Comments OT Bathing Comments pt has built in shower seat in walk in shower stall and has long bath sponge. can provide SBA PRN. M5 OT- IP IADL's Start: 12/07/18 12:29 Freq: Status: Active Protocol: Document 12/07/18 11:00 PJ (Rec: 12/07/18 12:47 [facility] [id number]) OT-Instrumental Activities of Daily Living Deficits IADL Deficits Identified Deficits Home Safety Awareness Awareness of Need for Assistance at Home Good Awareness Ability to Problem Solve Emergency Able to Problem Solve Situations Medication Management Medication Management No Deficits Identified Money Management Money Management No Deficits Identified Meal Preparation Meal Preparation Caregiver Provides Assist Meal Preparation Comments to assist until pt able Dynamics Ax Solution Architect Dynamics Ax Solution Architect Caregiver Provides Assist Dynamics Ax Solution Architect Comments to assist until pt able Driving Driving Caregiver Provides Assist Driving Comments to assist until pt able M6 OT- IP Functional Cognition Start: 12/07/18 12:29 Freq: Status: Active Protocol: Document 12/07/18 11:00 PJM (Rec: 12/07/18 12:47 [facility] [id number]) Cognitive Factors Limiting Selfcare Function Cognitive Ability Level of Alertness Alert Patient Orientation Name Age Birthday Month Date Year Day of Week Place Situation Attention Span Ability Capable of Focused Attention Capable of Sustained Attention Ability to Follow Commands Able to Follow One Step Commands Safety Awareness Decreased Ability to Apply Precautions Problem Solving Ability Needs Assist to Identify Solutions Cognitive Comments Cognitive Assessment Comments Pt able to verbalize 3/3 lumbar precautions but needs min cues to apply them during mobility and self care tasks. able to cue pt appropriately. Pt needs some repetition of information to ensure understanding e.g. use of new adaptive equipment. OT- Vision and Hearing OT- Hearing Assessment OT- Hearing Assessment WFL OT- Vision Assessment Visual Acuity WFL M7 OT- IP Mobility and Balance Start: 12/07/18 12:29 Freq: Status: Active Protocol: Document 12/07/18 11:00 PJM (Rec: 12/07/18 12:47 [facility] [id number]) OT- Bed Mobility Assessment Rolling Type of Rolling Roll to Right Level of Assistance Independent Supine to Sit Supine to Sit Assist Independent Sit to Supine Sit to Supine Assist Standby Assistance Scooting Scooting to Edge of Bed Independent OT-Transfer Assessment Sit to and From Stand Sit to and from Stand Independent Transfers Transfer Ability Independent Technique Transfer Destination Bed Chair Transfer Technique Stand Step Pivot Devices Transfer Assistive Devices Front Wheeled Walker Comments Mobility Comments Pt has weakness in R hip flexors and initially needing min assist to get RLE onto bed . Educated about using LLE to assist RLE onto bed, then pt SBA to independent with pratice. OT- Gait Assessment Gait Gait Assistance Required: Independent Distance (Feet) 10 Assistive Devices Assistive Device Front Wheeled Walker Comments Gait Ability Comments needs reminders to use FWW as per P.T. recommendation OT- Balance Assessment Sitting Balance and Reactions Static Sitting Balance Ability Good Dynamic Sitting Balance Ability Good Standing Balance and Reactions Static Standing Balance Ability Good Dynamic Standing Balance Ability Good Comments Other Balance Tests/Deviations/Treatment with FWW in standing : M8 OT- IP Objective Assessments Start: 12/07/18 12:29 Freq: Status: Active Protocol: Document 12/07/18 11:00 PJM (Rec: 12/07/18 12:47 [facility] [id number]) OT Gross Range of Motion Upper Extremity Range of Motion Assessment Within Functional Limits OT Strength Upper Extremity Strength Assessment Within Functional Limits Hand Fuel Truck Driver Strength Hand Dominance Right OT- Coordination Assessment Upper Extremity Finger Tapping Test Within Functional Limits Comments Coordination Comments BUE WFL OT-Muscle Tone Assessment Muscle Tone WNL Yes OT Sensation Assessment Comments Summary Comments Pt denies deficits in BUE's; pt reports numbness in R anterior thigh Edema Edema Absent M9 OT- IP Assessment and Plan Start: 12/07/18 12:29 Freq: Status: Active Protocol: Document 12/07/18 11:00 PJM (Rec: 12/07/18 12:47 PJ [id number]) OT Summary Assessment and Plan Potential Rehabilitation Potential Good Analytic Complexity at Evaluation Low Summary OT Impairments Pain Strength Progress Towards Goals Safe For Discharge Assessment Summary Low complexity OT assessment and all education provided today re: lumbar spine precautions, chair selection, posture, body mechanics, adapted ADLS including use of lower body dressing equipment, bathroom safety equipment options, shower stall and car transfers. here for education at end of session and can provide 24 hr assist after d/c PRN. Pt/husbnad verbalize and demonstrate understanding of all education . Pt plans to d/c home today. No further OT services needed. Frequency of Treatment Frequency Of Treatment Discharge Discharge Recommendations OT Discharge Recommendations Home with 24/7 Assist Home Equipment Needs sock aid provided; to obtain FWW for pt from local [facility]
--- NOTE | 2018-12-07 11:35 | CM.DANOTE ---
Addendum entered by Hermila Jacinto LPN 12/07/18 11:49: Went to room to check in with pt. Room empty. RN Lurdes states that pt did extremely well this morning. Worked with OT Rae and PT and was ok for home. Attempted to connect with LILIYA Alexander but she is not currently available. Reviewed initial PT eval by Dwight Garsia) of yesterday. He was recommending snf so surmise part of this info might have been pulled into eval today. Lurdes states she went home with her to [place] and no concerns were expressed re the d/c for today. Original Note: Addendum entered by Hermila Jacinto LPN 12/07/18 11:43: See that LILIYA Alexander did see pt this morning and her note was just entered. She is recommending home with assistance for snf....will check in with her and with pt now. Original Note: Discharge Planning/Care Management DCP: assessment: case received, EMR reviewed and d/c to home order noted early this morning by Ortho PA team. Pt is a 78 year old female who admitted yesterday for a planned spinal surgery: Surgeon: Dr. Nassar. PCP: listed as Zayra Mccormack Payer: Medicare and AARP Therapy has been ordered but no notes are available at this time. P: check in with pt for introduction of self and role follow up accordingly. CM Discharge Assessment Start: 12/07/18 11:34 Freq: Status: Active Protocol: Document 12/07/18 11:34 ITV (Rec: 12/07/18 11:35 ITV [id number]) Discharge Planning Assessment Advance Directives? Yes Advance Directives on File No History Provided By Patient Family Member Medical Record Prior Living Arrangements House Household Members spouse Whiteboard Updated in Patient Room with Yes name and ext. 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 Review Status In Process Next Review Type Continued Stay Review Pre-Anesthesia Assessment Start: 11/18/18 12:52 Freq: Status: Complete Protocol: Document 11/18/18 12:52 CAB (Rec: 11/18/18 13:35 CAB [id number]) Pre-Anesthesia Assessment Patient Information Reviewed Via Phone Assessment Assessment Completed With Patient Consent for Planned Operative Procedure( Yes s) Verified Diagnostic Results BMP/CMP CBC EKG Primary Care Provider Radha Mccormack Seen Specialist in Last 12 Months Yes Specialist Seen Orthopedist Primary Language Khmer Nurse Instructor Required No Height 165.1 cm Weight 70.307 kg Body Mass Index (BMI) 25.7 Hearing Ability Normal Visual Assist Glasses Dentition Type Teeth, Natural Present Teeth, Missing Barriers to Learning Auditory Other Aids No Hx Anesthesia Reactions No Hx Family Anesthesia Reaction No Hx Malignant Hyperthermia No Hx Blood Transfusions No Anesthesia Review Requested No Reprographics Technician No alcohol intake current alcohol intake frequency 0-2 drinks per day Smoking Status Former smoker Tobacco type cigarettes how long ago did patient quit smoking Quit age 23 Substance Use Type does not use Pain Present Pain Reported Musculoskeletal Symptoms Back Pain Difficulty Walking Joint Pain Muscle Cramps Numbness Radiating Pain into Limb Tingling History of Falling (Recent or History of Yes ) Patient is completely paralyzed or No completely immobile Mental Status Oriented to own ability Is patient on oxygen? No Does patient have DIANA/SOB No Hx Sleep Apnea No Currently Taking a Beta Kayleen Yes: Propranolol-increase heart rate w/migraines Can You Climb a Flight of Stairs Without Yes SOB Hx Chest Pain No Hx SOB No Hx Syncope or Dizziness No Anti-Coagulant Therapy No Has a Interceptor Operator No Cardiac Testing No Hx Pacemaker/ICD No Pacemaker Rep Required? No Cardiac Clearance Received Not Applicable Diet Type At Home Regular dysphagia No Urinary Catheter Present No Hx Urinary Self Catheterization No Diabetes No Patient No Lactating No Hx Drug Resistant Organism No Presence of External or Internal Medical No Devices Have you traveled outside the [place] Yes: Will travel to [place] 11/20- in the last 30 days? 3/3 Marital Status Lives With spouse Prior Living Arrangements House Number of Floors (Floors) One Floor Number of Stairs To Enter/Railing? None Support System Spouse Patient Discharge Plan Description Return Home Comment Pt advised 2-3 night length of stay per surgeon's office Feels Safe in Current Environment Yes Been Physically Hurt or Threatened By a No Person in Current Environment Do you have thoughts of harming yourself None or others? Are you currently considering suicide? No Do you have a plan to hurt yourself or No Plan others? Do You Have Any Spiritual Beliefs That No May Affect Your HC Choices? Do You Have Any Cultural Practices That No May Affect Your HC Choices? Spiritual Referral None Who Can We Speak to About Patient's Care Family, friends Identifying Code for Release of Patient Declines to issue Information Health Care Proxy/Next of Kin Yoav Temple () Health Care Proxy Emergency Contact Name Yoav Temple () Emergency Contact Advance Directives? Yes Advance Directives on File No Requested Patient Bring Advanced Yes Directives DOS Power of Ammunition Specialist Yes Power of Ammunition Specialist Name Yoav Temple () Power of Ammunition Specialist PAC Instructions Durable medical equipment Medications to take/avoid Nasal antibiotic No ETOH/petroleum product on skin DOS NPO Pre-surgical wash Sturdy shoes/comfortable clothes Do not bring valuables and remove jewelry
--- NOTE | 2018-12-07 11:35 | PT.IPTN ---
Current Diagnoses Spondylolisthesis, lumbar region (12/06/18) Other spondylosis with radiculopathy, lumbar region (12/06/18) Spinal stenosis, lumbar region without neurogenic claudication (12/06/18) Surgery Performed Operation Date: 12/06/18 07:45 Actual Procedures p L2-3, L3-4 TLIF w/Posterior Oscaru - Janice Nassar MD Physical Therapy Treatment Note M2 PT-IP Current Condition Start: 12/06/18 17:17 Freq: NEEDED Status: Active Protocol: Document 12/06/18 15:45 HH (Rec: 12/06/18 18:03 HH [id number]) Physical Therapy Current Condition Current Condition Evaluation Date 12/06/18 Treatment Diagnosis L2-L4 TLIF, impaired balance and gait Onset Date 12/06/18 Precautions Lumbar Precautions Log Roll No Twisting Limit Bending Lifting Restriction of 10 lbs Gait Belt above Incisional Area Weight Bearing Status Weight Bearing Status Weight Bear as Tolerated M3 PT-IP Subjective Start: 12/06/18 17:17 Freq: NEEDED Status: Active Protocol: Document 12/07/18 09:40 CLB (Rec: 12/07/18 11:35 CLB [id number]) Subjective Physical Therapy Visit Type Type Treatment Note Visit Start Time 09:40 Visit Stop Time 09:55 Total Visit Minutes 15 Number of TEACHER EDUCATION INSTRUCTOR Visits 1 Physical Therapy Visit Comments Patient Comments Pt stated she can't move RLE while in bed and c/o numbness in RLE. Patient Goals To return home with her . Therapy Pain Assessment Pain Present Pain Present Denied Pain M4 PT-IP Mobility and Gait Start: 12/06/18 17:17 Freq: NEEDED Status: Active Protocol: Document 12/07/18 09:40 CLB (Rec: 12/07/18 11:35 CLB [id number]) PT-Bed Mobility Assessment Rolling Type of Rolling Log Rolling Roll to Right Supine to Sit Supine to Sit Standby Assistance Scooting Scooting to Edge of Bed Standby Assistance PT-Transfer Assessment Sit to and From Stand Sit to and from Stand Contact Guard Assistance 1 Person Assistance Use of Upper Extremities Equipment Transfer Assistive Device Gait Belt Front Wheeled Walker Transfers Transfer Destination Bed Chair Transfer Ability Level of Assist Contact Guard Assistance 1 Person Assistance Use of Upper Extremities Comments Mobility Comments Pt eager to get OOB and required cues to slow down and properly perform log roll. Gait Assessment Gait Gait Assistance Required: Standby Assistance 1 Person Assist Distance (Feet) 100 Able to Maintain Weight Bearing Status Yes During Gait Assistive Devices Assistive Device None Gait Belt Front Wheeled Walker Gait Deviations General Gait Pattern Ataxic Decreased Stride Length Decreased Feet Clearance Factors Limiting Gait Function Factors Limiting Gait Function Decreased Activity Tolerance Decreased Sensation Decreased Strength Limited Range of Motion Pain Poor Balance Poor Safety Awareness Comments Gait Comments Pt ambulate quickly and requires cues to slow pace. Pt also needed cues for walker use as pt wanted to pick walker up during ambulation. Pt was steadier on her feet with no retropulsion present today. Pt requested to trial ambulation w/o AD which was performed with CGA. Pt had increased forward flx and it was recommended to pt she continues to use FWW for ambulation. Stair Climbing Assessment Comments Stair Climbing Comments Pt has no stairs in home and none to enter home through garage. M5 PT-IP Objective Assessments Start: 12/06/18 17:17 Freq: NEEDED Status: Active Protocol: Document 12/06/18 15:45 HH (Rec: 12/06/18 18:03 [id number]) Orientation Orientation/Cognition Level of Alertness Alert Orientation Name Age Birthday Month Date Year Day of Week Place Situation Language Function Ability No Deficits Noted Safety Awareness Decreased Safety Awareness Memory Description No Deficits Noted Gross Range of Motion Upper Extremity ROM Assessment Within Functional Limits Lower Extremity ROM Assessment Within Functional Limits Strength Upper Extremity Strength Assessment Within Functional Limits Lower Extremity Strength Assessment Within Functional Limits Coordination Assessment Gross Coordination Gross Coordination WNL Sensation Assessment Sensation Gross Sensation WNL Light Touch Intact Proprioception (Position) Intact Muscle Tone Muscle Tone WNL Yes M6 PT-IP Treatment Start: 12/06/18 17:17 Freq: NEEDED Status: Active Protocol: Document 12/06/18 15:45 HH (Rec: 12/06/18 18:03 [id number]) Physical Therapy Treatment Exercises Exercises Ankle Pumps Quad Sets Education Education Provided Precautions Weight Bearing Status Post-Op Packet Safety M7 PT-IP Assessment and Plan Start: 12/06/18 17:17 Freq: NEEDED Status: Active Protocol: Document 12/07/18 09:40 CLB (Rec: 12/07/18 11:35 CLB [id number]) PT Summary Assessment and Plan Potential Rehabilitation Potential Good Status of Condition at Evaluation Evolving Summary Impairments Pain ROM Strength Balance Bed Mobility Transfers Gait Activity Tolerance Assessment Summary Pt is impulsive and requires cues to slow pace. Pt requires the use of FFW at this time for safety. Pt refused ambulation in gaffney but completed ~100ft in room with cues for pacing for safety. Pt moves walker to side and tries to transfer w/o use of walker reaching for furniture. Recommended to pt that she continues to use FWW for safety and to prevent bending. Pt recalled 3/3 precautions but doesn't always demontrate them during ambulation and transfers. Goals Bed Mobility Goal Standby Assistance Transfer Goal Standby Assistance Front Wheeled Walker Gait Goal Standby Assistance Front Wheel Walker Gait Distance 200 Days to Meet Goals 5 Frequency of Treatment Frequency Of Treatment Twice a Day Treatment Plan Physical Therapy Treatment Plan Bed Mobility Training Transfer Training Gait Training Therapeutic Exercise Balance Retraining Post Op Education Discharge Planning Hot or Cold Pack Other Recommendations and Next Treatment monitor pt's mental status and Focus VSS transfer and gait training as rajinder. Recommendations To Nursing Amount of Assist Needed 1 Person Assist Discharge Recommendations PT Discharge Recommendations Home with Assistance SNF Rehab Other Discharge Recommendations Equipment Needed for Home Before shower bench Discharge
== END 2018-12-07 11:26 | disposition home or self-care (01) | DRG 455 ==
PROVIDERS: Admitting Provider Orthopaedic Surgery Orthopaedic Surgery of the Spine; PCP Internal Medicine; Visit Provider Orthopaedic Surgery Orthopaedic Surgery of the Spine
PROC: 0SG10AJ Fusion of 2 or more Lumbar Vertebral Joints with Interbody Fusion Device, Posterior Approach, Anterior Column, Open Approach (ICD-10-PCS; principal; 2018-12-06 07:45)
DX: M43.16 Spondylolisthesis, lumbar region (principal); M48.061 Spinal stenosis, lumbar region without neurogenic claudication; E78.5 Hyperlipidemia, unspecified; M41.26 Other idiopathic scoliosis, lumbar region
CPT/HCPCS: 36415; 72100; 76000; 85014; 85018; 94760; 97116; 97162; 97165; 97530; C1776; C9290; J0131; J0330; J0690; J1100; J1170; J2250; J2405; J2704; J3010

== ENCOUNTER → 2018-12-28 12:00 | Outpatient (CLI) | payer MEDICARE, SELFPAY ==
[2018-12-06 14:28] VITALS: BMI 26.8
--- NOTE | 2018-12-28 | DI.CT.S_ITS ---
PROCEDURE: CT LUMBAR SPINE WO CON INDICATIONS: INVERTEBRAL DISC DISORDER LUMBAR REGION TECHNIQUE: Noncontrast 3 mm thick sections acquired from the T12 level to the sacrum. Sagittal and coronal reformats were constructed. For radiation dose reduction, the following was used: automated exposure control. COMPARISON: [facility], MR, MR LUMBAR SPINE WO CON, 08/20/2018, 13:30. [facility], CR, XR LUMBAR SPINE 2-3V, 12/06/2018, 8:16. FINDINGS: Image quality: Excellent. Bones: No acute vertebral body compression fractures. No suspicious lytic or blastic bony lesions. Central spinal caliber is of normal overall caliber. No pars defects. Mild S. shaped scoliotic curvature is seen. Postoperative changes are seen, bilateral pedicle screws at the L2, L3, and L4 levels. The screws appear well placed. Vertical fixation rods are seen. Disc spacers are seen at L2-L3 and L3-L4. No findings of hardware failure or hardware loosening are seen. There is streak artifact seen associated with the postoperative hardware. There has been removal of portions of the posterior elements. Bone grafting material is noted. T12-L1: No significant abnormality is seen. L1-L2: Moderate to severe loss of disc height is seen. Minimal retrolisthesis is seen at this level. There is moderate right-sided and moderate to severe left-sided neural foraminal narrowing seen. Endplate irregularity and osteophyte formation can be seen, particularly on the left side. Mild central canal narrowing is seen. L2-L3: The disc height is relatively well-preserved. Mild retrolisthesis is seen at this level. Mild generalized disc bulge is seen. There is moderate left-sided neural foraminal narrowing and no significant right-sided neural foraminal narrowing. This level is improved compared to the preoperative MRI. L3-L4: The disc height is relatively well-preserved. Mild disc bulge is seen. No significant neural foraminal or central canal narrowing can be seen. This level is improved compared to the prior MRI. L4-L5: Moderate loss of disc height is seen on the right side. Vacuum disc phenomenon is seen at this level. Endplate irregularity and osteophyte formation can be seen. Moderate bilateral neural foraminal narrowing is seen, left worse than right. Mild central canal narrowing is seen. Stable from the prior study. L5-S1: Moderate to severe loss of disc height is seen on the left side. Vacuum disc phenomenon is seen at this level. Endplate irregularity and sclerosis can be seen, particularly on the left side. Posteriorly directed endplate osteophytes are seen. There is at least moderate left-sided and moderate right-sided neural foraminal narrowing seen. Mild central canal narrowing is seen. No significant change from the prior. Soft tissues: No retroperitoneal masses or hematomas. Visualized aorta is normal in caliber. IMPRESSION: Postoperative change L2-L4, with improved degrees of narrowing throughout the postoperative region. The degenerative changes elsewhere appear stable. Dictated by: Elpidio Quevedo M.D. on 12/28/2018 at 11:34 Approved by: Elpidio Quevedo M.D. on 12/28/2018 at 11:42
== END ==
PROVIDERS: PCP Internal Medicine; Visit Provider Orthopaedic Surgery Orthopaedic Surgery of the Spine
DX: M51.16 Intervertebral disc disorders with radiculopathy, lumbar region (principal); M48.061 Spinal stenosis, lumbar region without neurogenic claudication; M48.07 Spinal stenosis, lumbosacral region
CPT/HCPCS: 72131

== ENCOUNTER 2019-01-05 09:45 | Inpatient (IN) | payer MEDICARE, SELFPAY ==
[2018-12-06 14:28] VITALS: BMI 26.8
[2018-12-31 10:20] VITALS: BMI 25.7
[2019-01-05] VITALS (12 sets, daily range): BP systolic 129–154; BP diastolic 60–98; PULSE 56–77; RESP 14–18; TEMP 36.1–37.1; O2SAT 95–100; BMI 25.7
--- NOTE | 2019-01-05 | DI.RAD.S_ITS ---
PROCEDURE: XR LUMBAR SPINE 2-3V INDICATIONS: L2-3, L3-4 TLIF TECHNIQUE: 2 views of the lumbar spine were acquired. COMPARISON: [facility], CT, CT LUMBAR SPINE WO CON, 12/28/2018, 12:10. [facility], CR, XR LUMBAR SPINE 2-3V, 12/06/2018, 8:16. FINDINGS: Limited intraoperative views of the spine were obtained. Posterior fixation and intervertebral spacers are present at L2-3, L3-4. Hardware is intact. There is trace retrolithesis of L2 on L3, L4 on L4. IMPRESSION: Intraoperative images of posterior fusion. Dictated by: Shweta Taylor M.D. on 01/06/2019 at 13:10 Approved by: Shweta Taylor M.D. on 01/06/2019 at 13:16
[2019-01-05] MEDS: LACTATED RINGERS 1,000 ML 42 ML IV ×2 (11:13→13:37)
--- NOTE | 2019-01-05 11:46 | PM.PREOP ---
Pre-operative Note Interval Note History & Physical reviewed/Exam performed by Physician: Yes Changes to H&P: No
[2019-01-05] MEDS: CEFAZOLIN 2 GM/100 ML FROZ.PIGGY IV ×2 (12:32→20:03)
[2019-01-05] MEDS: BUPIVACAINE LIPOSOME 266 MG/20 ML VIAL INJ (13:00)
[2019-01-05] MEDS: BUPIVACAINE 0.25% W/ EPI (PF) 10 ML VIAL 20 ML INJ (14:00)
--- NOTE | 2019-01-05 14:20 | PM.OP.1 ---
Operative Date/Time/Diagnoses Date of procedure: 01/05/19 Time of procedure: 12:20 Pre-op diagnosis: 1. Right sided post operative radiculopathy 2. 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 L2-3, L3-4 posterior segmental instrumentation removal 2. L3-4 revision hemilaminectomy with exploration of right L3 nerve root 3. L2-4 non-segmental instrumentation with pedicle screw placement in L2 and L4 4. Utilization of microsurgical technique and operating microscope Same procedure as scheduled: Yes Indications: Ms. Rocha is 1 month s/p L2-4 TLIF. She has been having right hip flexor weakness since surgery. After 2 weeks of observation there was no improvement in her strength. CT of her lumbar fusion showed epidural scarring and possible hardware irritation of her right L3 nerve root. I discussed my findings with her along with treatment options with risks and benefits. Patient decided to proceed with exploration of wound and possible hardware revision. Surgeon: Janice Nassar Switch Crew Supervisor: Xenia Day Click Yes if Unassisted: No Anesthesia Type: General Operative Notes Closure Type: primary Specimen(s): none sent Prosthetic devices, grafts, tissues, transplants, or devices: Globus revolve screw Estimated Blood Loss (mL): 30 Blood products transfused: none Procedure in detail: Patient was seen in the preoperative area. Risks and benefits of the surgery was discussed with the patient. Informed consent was obtained from the patient and placed in the chart. Surgical site was marked. Patient was taken to the operative room. General anesthesia was administered. Prophylactic antibiotic was given to the patient less than 30 min before the incision was made. Patient was placed into a prone position on the Theo table. Patient's back was then prepped and draped in the sterile fashion. Time-out was performed at this time. Using patient's previous scar incision was made over the L2-4 interval on the right side. Fascia was incised in line with skin incision. Patient's previously placed hardware over the L2-3, L3-4 level was identified by dissecting down to the level the hardware using a Bovie and a Neal. The locking caps which was removed using globus screwdriver. The locking swathi was then removed from the tulips of the pedicle screws using a James. The pedicle screws were then removed using the screwdriver. The L2 screw on the right was found to have less purchase than initial placement. The Globus and MARS retractors was then placed into the wound and docked onto the L3 lamina using C-arm guidance. Using microsurgical technique and operating microscope a laminectomy facetectomy was performed by removing the remaining L3 lamina on the right to expose patient's dura. After her epidural space was identified, careful debridement was performed by removing any epidural scar, granulation tissue for both additional decompression and exposure of neurologic structures. At this time, her right L3 nerve root was identified in its natural course of passage, inferior to the right L3 pedicle. The nerve root was followed laterally to lateral to the exit of neuroforamen. The L3 nerve root is intact, health in appearance and not under and visible pressure from surrounding structures. The nerve root was examined carefully under microscope maginification. The wound was irrigated with sterile normal saline after decompression and exploration was completed. Using the double C-arm technique, pedicle screws were placed into the L2 and L4 pedicles on the right. This was done by placing the Jamshidi needle into the pedicles, then placing the guidewires over the Jamshidi needle, and finally placing the cannulated screws over the guidewires. After the pedicle screws were placed, 1 titanium swathi was locked into the heads of the pedicle screws using locking caps and torque limiting screwdriver. Due to the close proximity of the L3 pedicle and previously placed L3 pedicle screw to patient's right L3 nerve root, decision was made to leave out the right L3 pedicle screw to minimize any possibility of nerve root irritation. Attempts were made to use different trajectory for screw placement. It was decided intra-operatively it is best to leave out the L3 pedicle screw since patient has a stable construct with her current hardware. After all the hardware was placed, and confirmed with AP and lateral C-arm imaging, the wound was then irrigated with sterile normal saline and packed with Ray-[place] gauze for 3 min to accomplish hemostasis. After the gauze was removed the deep fascia was closed with #1 Vicryl suture. The subcutaneous layer was closed with 2-0 Vicryl. The skin was closed with skin shayna. Patient tolerated the procedure well. There were no complications. Complications: none Condition: stable Disposition: PACU Plan for aftercare: Admit to inpatient hospital
--- NOTE | 2019-01-05 15:20 | PT.IIE ---
Current Diagnoses Radiculopathy, lumbar region (01/05/19) Other mechanical complication of other internal orthopedic devices, implants and grafts, initial encounter (01/05/19) Surgery Performed Operation Date: 01/05/19 11:45 Actual Procedures p L2-3,L3-4 Hardware Removal/Reinsertion Spine - Janice Nassar MD s Repeat Laminectomy - Janice Nassar MD Surgical History (Last Updated 11/18/18 @ 13:15 by Joanna Chambers RN) Hx of arthroscopy of left knee (Acute ~2002) Hx of tonsillectomy (Acute) Status post cataract extraction of both eyes with insertion of intraocular lens (Acute) Medical History (Last Updated 11/18/18 @ 13:18 by Joanna Chambers RN) Back pain (Acute) DDD (degenerative disc disease) (Acute) Easy bruisability (Acute) Ganglion cyst of dorsum of left wrist (Acute) Gout (Acute) Hyperlipidemia (Acute) Lumbar stenosis (Acute) Migraines (Acute) Neck pain (Acute) Numbness and tingling (Acute) Osteoarthritis (Acute) Osteoporosis (Acute) Recurrent HSV (herpes simplex virus) (Acute) Sciatica (Acute) Scoliosis (Acute) Skin cancer (Acute) Torn meniscus (Acute) Physical Therapy Inpatient Evaluation/Re-Eval M1 PT/OT-IP Prior Functional Status Start: 01/05/19 16:37 Freq: NEEDED Status: Active Protocol: Document 01/05/19 15:20 AB (Rec: 01/05/19 16:56 AB [id number]) Medical Review Prior Functional Status Medical History Reviewed Yes Communication able to make needs known Mobility and Gait pt stated that she was independent with all mobilities and ambulation without AD but after 1st back surgery december, has been using a FWW or SPC for mobility Prior Functional Level (Other details) pt with L2-4 fusion/lami last 12/06/18 and was d/c'd home but with ongoing pain and had recent surgery today 01/05/19 for L2-3, L3-4 posterior segmental instrumentation removal, L3-4 revision hemilaminectomy with exploration of right L3 nerve root, L2-4 non-segmental instrumentation with pedicle screw placement in L2 and L4 Social History Household Members spouse Living Arrangements House Number of Floors (Floors) One Floor Number of Stairs To Enter/Railing? has no steps to enter Home Environment Standard Height Toilet Walk in Shower Tub/Shower Home Equipment Front Wheel Walker Straight Cane Shower Seat with Backrest Grab Bars Near Toilet Grab Bars In Shower M2 PT-IP Current Condition Start: 01/05/19 16:37 Freq: NEEDED Status: Active Protocol: Document 01/05/19 15:20 AB (Rec: 01/05/19 16:56 AB [id number]) Physical Therapy Current Condition Current Condition Evaluation Date 01/05/19 Treatment Diagnosis s/p L2-4 instrumentation removal/revision hemilami; difficulty in walking Onset Date 01/05/19 Precautions Lumbar Precautions Log Roll No Twisting Limit Bending Lifting Restriction of 10 lbs Gait Belt above Incisional Area M3 PT-IP Subjective Start: 01/05/19 16:37 Freq: NEEDED Status: Active Protocol: Document 01/05/19 15:20 AB (Rec: 01/05/19 16:56 AB [id number]) Subjective Physical Therapy Visit Type Type Initial Evaluation Visit Start Time 15:20 Visit Stop Time 15:44 Total Visit Minutes 24 Number of APPLE PEELER OPERATOR Visits 0 Physical Therapy Visit Comments Patient Comments pt stated that she is ready to move Therapy Pain Assessment Pain When Pain Assessed At Rest Pain Present Pain Present Pain Reported Location Lower Back Intensity 3 Scale Used Numeric (1 - 10) Pain Management Techniques Apply Cold Re-positioning Timing of Activity with Medications M4 PT-IP Mobility and Gait Start: 01/05/19 16:37 Freq: NEEDED Status: Active Protocol: Document 01/05/19 15:20 AB (Rec: 01/05/19 16:56 AB [id number]) PT-Bed Mobility Assessment Rolling Type of Rolling Log Rolling Level of Assist Standby Assistance Supine to Sit Supine to Sit Standby Assistance Scooting Scooting to Edge of Bed Standby Assistance PT-Transfer Assessment Sit to and From Stand Sit to and from Stand Contact Guard Assistance 1 Person Assistance Use of Upper Extremities Equipment Transfer Assistive Device Gait Belt Front Wheeled Walker Orthotic/Prosthetic Devices or Brace: No Transfers Transfer Destination Chair Transfer Technique pt ambulated using FWW Transfer Ability Level of Assist Contact Guard Assistance 1 Person Assistance Gait Assessment Gait Gait Assistance Required: Contact Guard Assist Distance (Feet) 30 Able to Maintain Weight Bearing Status Yes During Gait Assistive Devices Assistive Device Gait Belt Front Wheeled Walker Orthotic/Prosthetic Devices or Brace: No Gait Deviations General Gait Pattern Decreased Stride Length Decreased Feet Clearance Factors Limiting Gait Function Factors Limiting Gait Function Decreased Activity Tolerance Decreased Strength Limited Range of Motion Pain Poor Balance Poor Safety Awareness Comments Gait Comments pt ambulated in room using FWW 30 ft CGA. pt can be impulsive and tries several time to ambulate without using FWW by carrying FWW up despite cues to use FWW for support. pt stated that she is trying her L knee if it can support her since it gave out on her prior to the 2nd surgery. PT-Balance Assessment Sitting Balance and Reactions Static Sitting Balance Ability Good Dynamic Sitting Balance Ability Good Standing Balance and Reactions Static Standing Balance Ability Fair Dynamic Standing Balance Ability Fair Device Used FWW M5 PT-IP Objective Assessments Start: 01/05/19 16:37 Freq: NEEDED Status: Active Protocol: Document 01/05/19 15:20 AB (Rec: 01/05/19 16:56 AB [id number]) Orientation Orientation/Cognition Level of Alertness Alert Orientation Name Age Date Place Situation Safety Awareness Decreased Safety Awareness Gross Range of Motion Lower Extremity ROM Assessment Within Functional Limits Strength Lower Extremity Strength Assessment Right Impaired Hip 3+/5 Knee 3+/5 Coordination Assessment Gross Coordination Gross Coordination WNL Sensation Assessment Sensation Gross Sensation Right LE Impaired Light Touch Impaired Sensation Description Numbness Comments Sensation Comments c/o decrease sensation on anterior medial R thigh M6 PT-IP Treatment Start: 01/05/19 16:37 Freq: NEEDED Status: Active Protocol: Document 01/05/19 15:20 AB (Rec: 01/05/19 16:56 AB [id number]) Physical Therapy Treatment Exercises Exercises Quad Sets Education Education Provided Precautions Weight Bearing Status Post-Op Packet Safety M7 PT-IP Assessment and Plan Start: 01/05/19 16:37 Freq: NEEDED Status: Active Protocol: Document 01/05/19 15:20 AB (Rec: 01/05/19 16:56 AB [id number]) PT Summary Assessment and Plan Potential Rehabilitation Potential Good Status of Condition at Evaluation Stable Summary Impairments Pain ROM Strength Balance Coordination Sensation Cognition Bed Mobility Transfers Gait Activity Tolerance Assessment Summary pt requiring CGA with mobility and cues for R quads activation. pt plans to go home and her spouse will assist her at home. pt will likely improve during hospital stay and may go home when medically stable. Goals Bed Mobility Goal Independent Transfer Goal Standby Assistance Front Wheeled Walker Gait Goal Standby Assistance Front Wheel Walker Gait Distance 150 Days to Meet Goals 3 Frequency of Treatment Frequency Of Treatment Twice a Day Treatment Plan Physical Therapy Treatment Plan Bed Mobility Training Transfer Training Gait Training Therapeutic Exercise Balance Retraining Post Op Education Discharge Planning Hot or Cold Pack Neuromuscular Re-ed Coordination Retraining Manual Therapy Other Recommendations and Next Treatment bed mobility, ambulation Focus Recommendations To Nursing Amount of Assist Needed 1 Person Assist Discharge Recommendations PT Discharge Recommendations Home with Assistance
[2019-01-05] MEDS: SODIUM CHLORIDE 0.9% 1,000 ML 100 ML IV (15:50)
[2019-01-05] MEDS: DOCUSATE 100 MG CAPSULE PO (20:01)
[2019-01-05] MEDS: MELATONIN 3 MG TABLET 6 MG PO (20:02)
[2019-01-05] MEDS: SENNOSIDES 8.6 MG TABLET 17.2 MG PO (20:03)
[2019-01-05] MEDS: PROPRANOLOL 10 MG TABLET 30 MG PO (20:03)
[2019-01-05] MEDS: ACETAMINOPHEN 325 MG TABLET 650 MG PO (20:12)
[2019-01-06] MEDS: ACETAMINOPHEN 325 MG TABLET 650 MG PO (02:37)
[2019-01-06] MEDS: CEFAZOLIN 2 GM/100 ML FROZ.PIGGY IV (04:55)
[2019-01-06 05:25] VITALS: BP 124/54; PULSE 63; RESP 16; TEMP 37.2; O2SAT 98
[2019-01-06 06:19] LABS: Hematocrit 31.3 % (36-46); Hemoglobin 10.7 g/dL (12.0-16.0)
[2019-01-06 07:35] VITALS: BP 145/70; PULSE 58; RESP 14; TEMP 36.6; O2SAT 100
--- NOTE | 2019-01-06 08:50 | PT.IPTN ---
Current Diagnoses Radiculopathy, lumbar region (01/05/19) Other mechanical complication of other internal orthopedic devices, implants and grafts, initial encounter (01/05/19) Surgery Performed Operation Date: 01/05/19 11:45 Actual Procedures p L2-3,L3-4 Hardware Removal/Reinsertion Spine - Janice Nassar MD s Repeat Laminectomy - Janice Nassar MD Physical Therapy Treatment Note M2 PT-IP Current Condition Start: 01/05/19 16:37 Freq: NEEDED Status: Active Protocol: Document 01/05/19 15:20 AB (Rec: 01/05/19 16:56 AB [id number]) Physical Therapy Current Condition Current Condition Evaluation Date 01/05/19 Treatment Diagnosis s/p L2-4 instrumentation removal/revision hemilami; difficulty in walking Onset Date 01/05/19 Precautions Lumbar Precautions Log Roll No Twisting Limit Bending Lifting Restriction of 10 lbs Gait Belt above Incisional Area M3 PT-IP Subjective Start: 01/05/19 16:37 Freq: NEEDED Status: Active Protocol: Document 01/06/19 08:50 AB (Rec: 01/06/19 09:18 AB [id number]) Subjective Physical Therapy Visit Type Type Treatment Note Visit Start Time 08:50 Visit Stop Time 09:00 Total Visit Minutes 10 Number of HOSPICE NURSE Visits 0 Physical Therapy Visit Comments Patient Comments stated that she is ready to go home and just waiting for PT clearance Therapy Pain Assessment Pain When Pain Assessed At Rest Pain Present Pain Present Pain Reported Location Lower Back Intensity 4 Scale Used Numeric (1 - 10) Pain Management Techniques Re-positioning Timing of Activity with Medications M4 PT-IP Mobility and Gait Start: 01/05/19 16:37 Freq: NEEDED Status: Active Protocol: Document 01/06/19 08:50 AB (Rec: 01/06/19 09:18 AB [id number]) PT-Bed Mobility Assessment Supine to Sit Supine to Sit Standby Assistance Sit to Supine Sit to Supine Standby Assistance Scooting Scooting to Edge of Bed Standby Assistance PT-Transfer Assessment Sit to and From Stand Sit to and from Stand Standby Assistance Equipment Transfer Assistive Device None Gait Belt Transfers Transfer Destination Bed Transfer Technique pt ambulated without AD SBA to CGA to the bed Transfer Ability Level of Assist Standby Assistance Contact Guard Assistance Gait Assessment Gait Gait Assistance Required: Standby Assistance Distance (Feet) 175 Able to Maintain Weight Bearing Status Yes During Gait Assistive Devices Assistive Device Gait Belt Front Wheeled Walker Orthotic/Prosthetic Devices or Brace: No Factors Limiting Gait Function Factors Limiting Gait Function Decreased Activity Tolerance Decreased Sensation Decreased Strength Limited Range of Motion Pain Poor Balance Poor Safety Awareness Comments Gait Comments educated pt on safety and continued use of FWW especially for long distance ambulation due to R quads weakness and decrease activity tolerance. pt understood. M5 PT-IP Objective Assessments Start: 01/05/19 16:37 Freq: NEEDED Status: Active Protocol: Document 01/05/19 15:20 AB (Rec: 01/05/19 16:56 AB [id number]) Orientation Orientation/Cognition Level of Alertness Alert Orientation Name Age Date Place Situation Safety Awareness Decreased Safety Awareness Gross Range of Motion Lower Extremity ROM Assessment Within Functional Limits Strength Lower Extremity Strength Assessment Right Impaired Hip 3+/5 Knee 3+/5 Coordination Assessment Gross Coordination Gross Coordination WNL Sensation Assessment Sensation Gross Sensation Right LE Impaired Light Touch Impaired Sensation Description Numbness Comments Sensation Comments c/o decrease sensation on anterior medial R thigh M6 PT-IP Treatment Start: 01/05/19 16:37 Freq: NEEDED Status: Active Protocol: Document 01/06/19 08:50 AB (Rec: 01/06/19 09:18 AB [id number]) Physical Therapy Treatment Education Education Provided Safety M7 PT-IP Assessment and Plan Start: 01/05/19 16:37 Freq: NEEDED Status: Active Protocol: Document 01/06/19 08:50 AB (Rec: 01/06/19 09:18 AB [id number]) PT Summary Assessment and Plan Potential Rehabilitation Potential Good Summary Impairments Pain ROM Strength Balance Coordination Sensation Bed Mobility Transfers Gait Activity Tolerance Progress Towards Goals Progressing Toward Goals Assessment Summary pt doing well with mobility and plans to go home today with spouse to assist her. Goals Bed Mobility Goal Independent Transfer Goal Independent Front Wheeled Walker Gait Goal Independent Front Wheel Walker Gait Distance 200 Days to Meet Goals 3 Frequency of Treatment Frequency Of Treatment Twice a Day Treatment Plan Physical Therapy Treatment Plan Bed Mobility Training Transfer Training Gait Training Therapeutic Exercise Balance Retraining Post Op Education Discharge Planning Hot or Cold Pack Neuromuscular Re-ed Coordination Retraining Manual Therapy Other Recommendations and Next Treatment bed mobility, ambulation Focus Recommendations To Nursing Amount of Assist Needed 1 Person Assist Discharge Recommendations PT Discharge Recommendations Home with Assistance
--- NOTE | 2019-01-06 09:07 | CM.DANOTE ---
DCP: Case received, EMR reviewed and met with patient. Introduced self and role. DCP template completed with information currently available. Patient is a 78 year old female who admitted yesterday morning to the care of the hospitalist team. PCP: Dr. Mccormack. Payer: confirmed: Medicare/[employer]. Patient came to hospital for surgical procedure. She had L2-3, L3-4 Posterior Segmental Instrumentation removal. She had recently had lumbar surgery and had some scarring, so they had to go in and do more surgery yesterday. Met with patient in room. Pleasant, alert and oriented, she was sitting up in her chair. She stated that she is independent, lives with her in [place]. She stated, she really wants to go home, hoping physical therapy will come in so I can be discharged. P: DCP to continue to follow. P.T. will be working with her before she is discharged home. Gloria Fernandez RN/Disposal Worker
--- NOTE | 2019-01-06 09:30 | OT.IP.TRT ---
Current Diagnoses Radiculopathy, lumbar region (01/05/19) Other mechanical complication of other internal orthopedic devices, implants and grafts, initial encounter (01/05/19) Surgery Performed Operation Date: 01/05/19 11:45 Actual Procedures p L2-3,L3-4 Hardware Removal/Reinsertion Spine - Janice Nassar MD s Repeat Laminectomy - Janice Nassar MD Occupational Therapy Treatment Note M3 OT- IP Subjective and Pain Start: 01/06/19 10:43 Freq: Status: Active Protocol: Document 01/06/19 09:30 PJM (Rec: 01/06/19 10:48 PJM [id number]) OT- Subjective Occupational Therapy Visit Type Type Administrative Note Notes OT referral received on this 78 yr old pt admitted for lumbar hardware revision. Pt known to this therapist from her previous hospital stay s/p L2-4 fusion on 12/06/18. All OT education completed then re: lumbar spine precautions and adapted ADL techniques. No OT services needed for this admission as pt has already received education/training. No charge.
--- NOTE | 2019-01-06 09:50 | PM.DS.1 ---
History of Present Illness Date Patient Seen: 01/06/19 Time Patient Seen: 09:50 Chief complaint: [id number] Narrative: Hospital day 2, postop day 1 following L2-3, L3-4 HW are, L3-4 revision morales laminectomy and exploration of right L3 nerve root, L2 through L4 posterior instrumentation by Dr. Nassar. Patient remained stable postoperatively. Doing well at this time without significant pain. she states that her right leg pain has resolved since surgery. still has weakness to her quad. Using Tylenol only. She did do well with Physical therapy this morning. Patient desiring to go home today. Discharge Providers Date of admission: 01/05/19 09:45 Discharge Date: 01/06/19 Primary care physician: Radha Mccormack MD Consults: 01/05/19 15:04 Consult to Occupational Therapy Evaluate & Treat Comment: Physician Instructions: Evaluate and treat Consult to Physical Therapy Evaluate & Treat Comment: Physician Instructions: Evaluate and Treat Discharge provider: Luis Dia PA-C Summary Discharge Diagnosis: Status post L2-3, L3-4 HGB OR, L3-4 revision hemilaminectomy and exploration of right L3 nerve root, L2 through L4 posterior instrumentation Hospital Course: Patient brought to hospital on 01/05/2019 for above noted surgery. She remained stable postoperatively. Progressed well with physical therapy. Ready for discharge home on postop day 1. Status at Discharge Cognitive/behavioral status at discharge: oriented Functional status at discharge: uses cane/walker Overall status at discharge: patient is progressing back to baseline Time Spent with Patient Less than 30 minutes Exam Vital Signs (past 8 hours): - 01/06/19 05:25 01/06/19 07:35 Temperature 98.9 F 97.9 F Pulse Rate 63 58 L Respiratory Rate 16 14 Blood Pressure 124/54 L 145/70 H Pulse Oximetry 98 100 Oxygen Delivery Method Nasal Cannula Oxygen Flow Rate 0 Narrative Exam Narrative: Alert, oriented no acute distress sitting in chair. Back. Dressing to lumbar areas dry without signs of infection or inflammation. Legs. No calf pain or swelling. Pulses symmetrical. She is able to do full leg extension from sitting position but still has difficulty with lifting right thigh. Objective Labs Result Diagrams: 01/06/19 05:10 Labs: Laboratory Results - last 24 hr 01/06/19 05:10 Hgb 10.7 L Hct 31.3 L Discharge Plan Discharge Plan Patient Disposition: Home Discharge comment: Discharge home today after cleared by PT. Apply CovRsite dressing to the lumbar incision. Discharge Med Rec/Prescriptions Prescriptions: Continued propranolol [Inderal LA] 60 mg Capsule,Extended Release 24 Hr 30 mg PO BEDTIME RF: 0 aspirin 81 mg Tablet,Delayed Release (Dr/Ec) 81 mg PO DAILY RF: 0 pravastatin 10 mg Tablet 10 mg PO DAILY RF: 0 famciclovir 500 mg Tablet 500 mg PO DAILY RF: 0 diphenhydramine HCl [Benadryl] 25 mg Capsule 12.5 mg PO BEDTIME RF: 0 melatonin 5 mg Tablet 5 mg PO BEDTIME RF: 0 oxycodone 5 mg Capsule 5 mg PO BID RF: 0 Follow up/Referrals: Radha Mccormack MD [Primary Care Provider] - Provider Discharge Instructions Diet: Diet as Tolerated Activity: Ambulate as tolerated. Avoid excessive bending or twisting of lumbar spine. no lifting or carrying more than 5-10 lb. Skin/Wound/Dressing Care Report to your healthcare provider any signs of infection, such as:: chills, fever, night sweats, increased pain, unusual drainage and unusual redness Dressing: Keep CovRsite dressing in place until postop visit. Visit Report/Discharge Packet Instructions: DI for Laminectomy Discharge Data Primary Care Provider: Radha Mccormack Attending Provider: Janice Nassar Admit Date/Time: 01/05/19 09:45
--- NOTE | 2019-01-06 10:39 | PC.NURSE ---
Discharge Pt states she has pain in her incision only but declines any medication. PIV removed and dressing changed to coversite per PA order. D/c instructions provided to pt. Aware of f/u apt with MD and to contact him with any additional questions or concerns. pt left in w/c with RN escort to car with spouse. pt states she took all belongings with her.
== END 2019-01-06 10:30 | disposition home or self-care (01) | DRG 460 ==
PROVIDERS: Admitting Provider Orthopaedic Surgery Orthopaedic Surgery of the Spine; PCP Internal Medicine; Visit Provider Orthopaedic Surgery Orthopaedic Surgery of the Spine
PROC: 0SP004Z Removal of Internal Fixation Device from Lumbar Vertebral Joint, Open Approach (ICD-10-PCS; principal; 2019-01-05 11:45)
PROC: 0SP004Z Removal of Internal Fixation Device from Lumbar Vertebral Joint, Open Approach (ICD-10-PCS; 2019-01-05 11:45)
DX: T84.498A Other mechanical complication of other internal orthopedic devices, implants and grafts, initial encounter (principal); M54.16 Radiculopathy, lumbar region; G96.12 Meningeal adhesions (cerebral) (spinal)
CPT/HCPCS: 36415; 72100; 76000; 82962; 85014; 85018; 94762; 97161; 97530; C1776; C9290; J0690; J1100; J1170; J2250; J2405; J2704; J3010

== ENCOUNTER → 2019-07-20 13:01 | Outpatient (CLI) | payer MEDICARE, SELFPAY ==
[2019-01-05 16:14] VITALS: BMI 25.7
--- NOTE | 2019-07-20 13:32 | DI.MRI.S_ITS ---
PROCEDURE: MR KNEE RT WO CON INDICATIONS: Unspecified internal derangement of right knee TECHNIQUE: Noncontrast sagittal PD fast spin echo and T2 fast spin echo with fat saturation, sagittal 3-D FLASH with fat saturation; coronal T1 spin echo and PD fast spin echo with fat saturation, and axial PD fast spin echo with fat saturation through the knee. COMPARISON: None. FINDINGS: Image quality: Excellent. Menisci: The lateral meniscus appears intact. There is mild signal change and frayed appearance of the free margin of the body of the medial meniscus however no discrete tear by strict MR criteria. This could be prominent myxoid degeneration Cruciate ligaments: The anterior and posterior cruciate ligaments appear intact. Medial structures: The medial collateral ligament appears thickened although predominantly low signal appearance without acute edema. Semimembranosus tendon also appears mildly thickened. Visualized portions of the pes anserinus tendons appear normal. No abnormal bursal fluid. Lateral structures: The lateral collateral ligament demonstrates thickening and intrasubstance signal change in keeping with low grade sprain, statistically chronic, although technically age indeterminate. Biceps femoris tendon appears intact. Popliteus tendon grossly unremarkable. Iliotibial band appears intact. Anterior structures: Quadriceps tendon intact. Medial and lateral patellofemoral ligaments intact. There is mild patellar tendinopathy. Prepatellar and superficial infrapatellar subcutaneous edema/fluid. Bones and cartilage: No focal marrow contusion or discrete low signal fracture line. Within the medial compartment, mild diffuse surface fraying and low-grade partial-thickness loss of the femoral and tibial cartilage Within the lateral compartment, mild partial-thickness loss of the femoral and tibial articular cartilage Within the patellofemoral compartment, diffuse partial-thickness loss of the patellar and femoral trochlear cartilage. Mild subchondral signal change or edema at the median patellar ridge Joint space: No pathologic joint effusion. Small Smith's cyst measuring 3 cm the cephalocaudad dimension No specific evidence of intra-articular loose body. IMPRESSION: Mild fraying of the free margin of the body of the medial meniscus however no definite tear by strict MR criteria. Chronic appearing sprain of the medial collateral ligament. Mild insertional semimembranosus tendinopathy. Mild patellar tendinopathy. Tricompartment joint degeneration as above. Small Smith's cyst. Dictated by: Fidencio Julian M.D. on 07/20/2019 at 13:57 Approved by: Fidencio Julian M.D. on 07/20/2019 at 14:04
== END ==
PROVIDERS: PCP Internal Medicine; Visit Provider Orthopaedic Surgery
DX: M17.11 Unilateral primary osteoarthritis, right knee (principal); S83.411A Sprain of medial collateral ligament of right knee, initial encounter; M71.21 Synovial cyst of popliteal space [Baker], right knee; M67.961 Unspecified disorder of synovium and tendon, right lower leg
CPT/HCPCS: 73721